=== PATIENT | male | born 1965 | race Caucasian/White ===

== ENCOUNTER → 2018-05-26 | Day surgery (SDC) | payer OTHER ==
[~2018-05-26] VITALS: Ht 175.3 cm; Wt 90.7 kg
[~2018-05-26] MED LIST: DexAMETHasone SOD PHOS 10MG/1ML VIAL INJ ONE; KETAMINE HCL 1 ML ONE; KETOROLAC TROMETH 30 MG/ML 1ML VIAL IV ONE; LABETALOL HCL 5 MG/ML 4ML SYRINGE IV PRN; MEPERIDINE HCL (50 MG/ML) 1 ML VIAL ONE; MIDAZOLAM HCL 1MG/1ML-2 ML VIAL IV PRN; MIDAZOLAM HCL 1MG/1ML-2 ML VIAL ONE; MORPHINE SULFATE 4 MG/ML SYR/VIAL IV ONE; MORPHINE SULFATE 4 MG/ML SYR/VIAL IV PRN; ONDANSETRON HCL 4 MG/2 ML VIAL IV ONE; ONDANSETRON HCL 4 MG/2 ML VIAL ONE; PROPOFOL 10 MG/ML 20 ML IV ONE; ePHEDrine SULFATE 50 MG/ML AMP IV PRN; fentaNYL CITRATE 100 MCG/2 ML VL ONE
[2018-05-26 08:42] LABS: Basophils # (auto) 0.1 uL; White Blood Cell 11.2 10^3/uL (4.4-10.8)
[2018-05-26 08:44] LABS: Basophils % (auto) 0.7 % (0.0-2.0); Eosinophils # (auto) 1.3 uL; Eosinophils % (auto) 11.8 % (0.0-7.0); Hemoglobin 13.6 g/dL (13.5-17.5); Lymphocytes # (auto) 1.1 uL; Lymphocytes % (auto) 9.9 % (10.0-50.0); Mean Corpuscular Hemoglobin 24.1 pg (28.0-32.0); Mean Corpuscular Hgb Conc. 31.7 g/dL (32.0-36.0); Monocytes % (auto) 9.4 % (0.0-12.0); Neutrophils # (auto) 7.6 uL; Neutrophils % (auto) 68.2 % (37.0-80.0); Platelet Count (auto) 337 10^3/uL (140-450); Red Blood Cells 5.65 10^6/uL (4.5-5.90); Red Cell Distribution Width 19.7 % (11.8-14.3)
[2018-05-26 09:06] LABS: Partial Thromboplastin Time 27.2 sec (23.78-33.04); Prothrombin Time 10.7 sec (9.27-12.13)
[2018-05-26 12:37] VITALS: BP 107/44
== END | disposition home or self-care (01) ==
LOC: EEVIPCON 07:10 → GI 07:10
PROVIDERS: ATTEND Internal Medicine Gastroenterology
DX: K52.89 Other specified noninfective gastroenteritis and colitis (principal); N40.0 Benign prostatic hyperplasia without lower urinary tract symptoms; K75.89 Other specified inflammatory liver diseases; Z79.899 Other long term (current) drug therapy; Z98.890 Other specified postprocedural states
CPT/HCPCS: 36415; 45380; 85025; 85610; 85730; J1100; J2175; J2250; J2405; J2704; J3010; J7030